=== PATIENT | female | born 1980 | race Two or more races ===

== ENCOUNTER 2017-09-24 21:00 | Emergency (ER) | payer MEDICAID ==
[~2017-09-24] VITALS: Ht 172.7 cm; Wt 65.8 kg
--- NOTE | 2017-09-24 22:06 | NUR ---
BIBSELF C/O LEFT LEG PAIN WITH CYST X 2 DAYS. PT AOX3 RR EVEN AND UNLABORED. NO SOB NOTED. NAD NOTED. NO NVD AT THIS TIME. PT NOT DIAPHORETIC. PT WAITING FOR MD HOPE.
[2017-09-24] MEDS ORDERED: CEPHALEXIN MONOHYDRATE 500 MG CAPSULE PO ONE ×2 (22:42→23:00)
[2017-09-24] MEDS ORDERED: ACETAMINOPHEN W/ CODEINE#3 1 EA TABLET ONE (22:42)
[2017-09-24] MEDS ORDERED: SULFAMETH/TRIMETH 800/160 MG 1 UDTAB TABLET PO ONE ×2 (22:43→23:00)
[2017-09-24] MEDS ORDERED: IBUPROFEN 600 MG TABLET PO ONE ×2 (22:43→23:00)
--- NOTE | 2017-09-24 22:53 | NUR ---
Patient discharged to home in stable condition. Written and verbal after care instructions given. Patient verbalizes understanding of instruction. ambulatory with a steady gait. instructed pt not to drive. pt verbalize understanding. pt w/c to lobby per pt request.
[2017-09-24 22:54] VITALS: BP 112/58
[2017-09-24] MEDS ORDERED: ACETAMINOPHEN W/ CODEINE#3 1 EA TABLET PO ONE (23:00)
== END 2017-09-24 22:55 | disposition home or self-care (01) ==
LOC: ER 21:20
DX: L03.116 Cellulitis of left lower limb (principal)
CPT/HCPCS: 99284; A4606; Z7610

== ENCOUNTER 2017-09-26 18:43 | Emergency (ER) | payer MEDICAID ==
[~2017-09-26] VITALS: Ht 172.7 cm; Wt 65.8 kg
[2017-09-26 18:43] VITALS: BP 125/80
--- NOTE | 2017-09-26 19:15 | NUR ---
PT STABLE CONDITION. NO AVAILABLE BEDS.
[2017-09-26] MEDS ORDERED: CEPHALEXIN MONOHYDRATE 500 MG CAPSULE PO ONE ×2 (22:48→23:00)
[2017-09-26] MEDS ORDERED: SULFAMETH/TRIMETH 800/160 MG 1 UDTAB TABLET PO ONE ×2 (22:48→23:00)
== END 2017-09-26 23:14 | disposition home or self-care (01) ==
LOC: ER 18:45
DX: L03.116 Cellulitis of left lower limb (principal); L72.8 Other follicular cysts of the skin and subcutaneous tissue
CPT/HCPCS: 99283; A4606; Z7610